=== PATIENT | male | born 2000 | race Caucasian/White ===

== ENCOUNTER 2022-04-14 05:29 | Emergency (ER) | payer OTHER ==
[~2022-04-14] VITALS: Ht 185.4 cm; Wt 99.8 kg
== END 2022-04-14 09:24 | disposition home or self-care (01) ==
LOC: ER 05:29
DX: S61.213A Laceration without foreign body of left middle finger without damage to nail, initial encounter (principal); X58.XXXA Exposure to other specified factors, initial encounter
CPT/HCPCS: 12001; 73140; 99283-25

== ENCOUNTER 2022-04-16 23:13 | Emergency (ER) | payer OTHER ==
[~2022-04-16] VITALS: Ht 185.4 cm; Wt 97.5 kg
== END 2022-04-17 02:11 | disposition home or self-care (01) ==
LOC: ER 23:13
DX: Z48.01 Encounter for change or removal of surgical wound dressing (principal)
CPT/HCPCS: 99282